=== PATIENT | female | born 1970 | race Caucasian/White ===

== ENCOUNTER 2024-08-06 06:42 | Day surgery (SDC) | payer OTHER ==
[2024-08-05 11:31] VITALS: BMI 32.9
[2024-08-06 08:30] VITALS: TEMP 98
[2024-08-06 08:47] VITALS: PULSE 72; RESP 18
[2024-08-06 08:59] VITALS: BP 109/62
== END 2024-08-06 09:07 | disposition home or self-care (01) ==
LOC: JASU-ENDO 06:42
PROVIDERS: ATTEND Internal Medicine Gastroenterology
PROC: 0DJD8ZZ Inspection of Lower Intestinal Tract, Via Natural or Artificial Opening Endoscopic (ICD-10-PCS; principal; 2024-08-06 08:00)
DX: Z12.11 Encounter for screening for malignant neoplasm of colon (principal); K57.30 Diverticulosis of large intestine without perforation or abscess without bleeding; K64.8 Other hemorrhoids
CPT/HCPCS: 81025